=== PATIENT | male | born 1980 | race Caucasian/White ===

== ENCOUNTER 2023-11-09 14:28 | Emergency (ER) | payer OTHER ==
[2023-11-09] MEDS ORDERED: Ketorolac Tromethamine 30 MG (1 mL) VIAL ONE (14:58)
[2023-11-09] MEDS ORDERED: Dexamethasone 10 MG/ML VIAL ONE (14:58)
== END 2023-11-09 15:30 ==
LOC: EEVIPCON 14:28 → ERS 14:28
DX: J02.9 Acute pharyngitis, unspecified (principal)
CPT/HCPCS: 87081; 87430; 96372; 99283; J1100; J1885